=== PATIENT | female | born 1990 | race Caucasian/White ===

== ENCOUNTER 2023-09-16 03:18 | Emergency (ER) | payer OTHER ==
[2023-09-16 03:45] VITALS: TEMP 98
--- NOTE | 2023-09-16 03:48 | ED ---
ENT HPI - General Chief complaint: ENT Stated complaint: left ear pain Time Seen by Provider: 09/16/23 03:47 Source: patient Mode of arrival: ambulatory Limitations: no limitations - History of Present Illness Initial comments: 33 yo F presenting to the ER today for evaluation of left-sided ear pain. Patient states she had some pain in her ear she was trying to do things to relieve the pressure she irrigated the ear with peroxide and she was trying to hold her nose and blow but the pain got worse so she decided come into the ER for evaluation. Patient does report she has had some stuffy nose lately. No fevers. She does have a history of ear infections as a kid but none as an adult. - Related Data Previous Rx's Medication Instructions Recorded Amoxicillin 875 mg PO Q12HR 5 Days #10 tablet 09/16/23 Fluticasone Nasal Rosine [Flonase 1 spray EA NOSTRIL DAILY 7 Days 09/16/23 Nasal Rosine] #16 gm Allergies Allergy/AdvReac Type Severity Reaction Status Date / Time No Known Allergies Allergy Verified 09/16/23 03:33 Review of Systems ROS Statement: Those systems with pertinent positive or pertinent negative responses have been documented in the HPI. ROS Other: All systems not noted in ROS Statement are negative. Past Medical History Past Medical History: No Reported History History of Any Multi-Drug Resistant Organisms: None Reported Past Surgical History: Section Past Psychological History: No Psychological Hx Reported Smoking Status: Vaper Past Alcohol Use History: Occasional Past Drug Use History: None Reported General Exam - General Exam Comments Initial Comments: Physical Exam GENERAL: Patient is well-developed and well-nourished. Patient is nontoxic and well-hydrated and is in no distress. HENT: Normocephalic, Atraumatic. Left tympanic membrane is erythematous and bulging with some purulent discharge and air-fluid levels noted behind the TM Right TM is bulging but clear with no erythema EYES: PERRL, EOMI PULMONARY: Unlabored respirations. CARDIOVASCULAR: RRR Warm and well perfused extremities ABDOMEN: Non-distended SKIN: No rashes or bruising : Deferred NEUROLOGIC: Alert and oriented Normal speech Normal gait MUSCULOSKELETAL: Moving all extremities with no apparent injury PSYCHIATRIC: No SI/HI Limitations: no limitations Course Vital Signs 09/16/23 03:29 Temperature 98 F Pulse Rate 102 H Respiratory 18 Rate Blood Pressure 151/93 O2 Sat by Pulse 99 Oximetry Medical Decision Making - Medical Decision Making Was pt. sent in by a medical professional or institution (GILMAR Archer, [employer] SECRETARY AND HANDIC[employer]PER, urgent care, hospital, or shelter...) When possible be specific @ -No Did you speak to anyone other than the patient for history (EMS, parent, family, police, friend...)? What history was obtained from this source @ -No Did you review nursing and triage notes (agree or disagree)? Why? @ -I reviewed and agree with nursing and triage notes Were old charts reviewed (outside hosp., previous admission, EMS record, old EKG, old radiological studies, urgent care reports/EKG's, shelter records)? Report findings @ -No old charts were reviewed Differential Diagnosis (chest pain, altered mental status, abdominal pain women, abdominal pain men, vaginal bleeding, weakness, fever, dyspnea, syncope, headache, dizziness, GI bleed, back pain, seizure, CVA, palpatations, mental health)? @ -Not applicable EKG interpreted by me (3pts min.). @ -As above X-rays interpreted by me (1pt min.). @ -None done CT interpreted by me (1pt min.). @ -None done U/S interpreted by me (1pt. min.). @ -None done What testing was considered but not performed or refused? (CT, X-rays, U/S, labs)? Why? @ -None What meds were considered but not given or refused? Why? @ -None Did you discuss the management of the patient with other professionals (professionals i.e. GILMAR Archer, [employer] SECRETARY AND HANDICAPPER, lab, RT, psych nurse, social service director, transplant coordinator, teacher, bank operations officer, case investigator)? Give summary @ -No Was smoking cessation discussed for >3mins.? @ -No Was critical care preformed (if so, how long)? @ -No Were there social determinants of health that impacted care today? How? (Homelessness, low income, unemployed, alcoholism, drug addiction, transportation, low edu. Level, literacy, decrease access to med. care, snf, rehab)? @ -No Was there de-escalation of care discussed even if they declined (Discuss DNR or withdrawal of care, Hospice)? DNR status @ -No What co-morbidities impacted this encounter? (DM, HTN, Smoking, COPD, CAD, Cancer, CVA, ARF, Chemo, Hep., AIDS, mental health diagnosis, sleep apnea, morbid obesity)? @ -None Was patient admitted / discharged? Hospital course, mention meds given and route, prescriptions, significant lab abnormalities, going to OR and other pertinent info. @ -Discharged History and physical exam are consistent with acute left-sided otitis media. Patient was treated with Toradol started on amoxicillin supportive care measures were discussed patient discharged home in stable condition. Undiagnosed new problem with uncertain prognosis? @ -No Drug Therapy requiring intensive monitoring for toxicity (Heparin, Nitro, Insulin, Cardizem)? @ -No Were any procedures done? @ -No Diagnosis/symptom? @ -Left otitis media Acute, or Chronic, or Acute on Chronic? @ -Acute Uncomplicated (without systemic symptoms) or Complicated (systemic symptoms)? @ -Uncomplicated Side effects of treatment? @ -No Exacerbation, Progression, or Severe Exacerbation? @ -No Poses a threat to life or bodily function? How? (Chest pain, [place], [place], pneumonia, PE, COPD, DKA, ARF, appy, cholecystitis, CVA, Diverticulitis, Homicidal, Suicidal, threat to staff... and all critical care pts) @ -No Disposition Clinical Impression: Otitis media Disposition: HOME SELF-CARE Condition: Stable Prescriptions: Amoxicillin 875 mg PO Q12HR 5 Days #10 tablet Is patient prescribed a controlled substance at d/c from ED?: No Referrals: Elliott Pichardo MD [Primary Care Provider] - 1-2 days
[2023-09-16] MEDS: KETOROLAC 15 MG/ML 1 ML VIAL IM STA (04:55)
[2023-09-16] MEDS: AMOXICILLIN 500MG STARTER PACK 3 CAP BTL PO STA (05:18)
[2023-09-16 05:24] VITALS: BP 132/86; PULSE 89; RESP 17
== END 2023-09-16 05:20 | disposition home or self-care (01) ==
LOC: EC 03:18
DX: H66.92 Otitis media, unspecified, left ear (principal); F17.290 Nicotine dependence, other tobacco product, uncomplicated
CPT/HCPCS: 99283; 96372; J1885